=== PATIENT | female | born 1995 | race American Indian/Alaskan Native ===

== ENCOUNTER 2016-08-01 01:45 | Inpatient (IN) | payer OTHER ==
[2016-08-01] MEDS ORDERED: ZOFRAN IV PRN ×2 (03:08→05:21)
[2016-08-01] MEDS ORDERED: ePHEDrine SULFATE IV PRN (03:08)
[2016-08-01] MEDS ORDERED: SUBLIMAZE IV PRN (03:08)
[2016-08-01] MEDS ORDERED: BRETHINE IVP PRN (03:08)
[2016-08-01] MEDS ORDERED: BRETHINE SUB-Q PRN (03:08)
[2016-08-01] MEDS ORDERED: XYLOCAINE 2% INFILTRATI ONE (03:08)
[2016-08-01] MEDS ORDERED: NARCAN 0.4 MG/1 ML IV PRN (03:08)
--- NOTE | 2016-08-01 03:29 | History and Physical Report ---
History of Present Illness Date of examination: 08/01/16 Date of admission: 08/01/16 01:45 Chief complaint: I delivered at home History of present illness: Pt is a 21 year old -[place] female LMP unsure, February 2016 NUBIA 12/08/16 by outside ultrasound at 21w4d who presents after delivery at home of twin via EMS. She reports that she delivered a male in January 2016 , had a menses in February 2016 and received two doses of DepoProvera subsequently (in February 2016 and May 2016). In late June 2015, the pt was not feeling well and reports she went a "clinic downtown" two weeks ago and was told that she was . An ultrasound was done at that time which showed a twin with an NUBIA of 12/08/16. She was given vitamins and told to establish care. The pt had not yet established care because of her [place] schedule [facility] [employer] [facility] [place] and lack of childcare for her son. She was in her usual state of health until the morning of 07/31/16 when she began to feel cramping. She then reports that the cramping got progressively worse over the course of the day. She also experienced vaginal spotting which became heavier over the course of the day and night as well. Early this morning, the pt felt pressure and the need to push and delivered two fetuses while on the toilet at home. Her mother then called EMS and she was transported to this facility. The patient denies headache, blurry vision, chest pain, dyspnea, nausea or vomiting. She has no prior history of labor or . Past History Past Medical History: no pertinent history, other (Eczema ) Past Surgical History: no surgical history Social history: single - Obstetrical History Expected Date of Delivery: 12/08/16 Actual Gestation: 21 Week(s) 4 Day(s) : 3 Para: 1 Hx # Term Pregnancies: 1 Number of Pregnancies: 0 Spontaneous Abortions: 1 (6 wks) Induced : 0 Number of Living Children: 1 Medications and Allergies Allergies Allergy/AdvReac Type Severity Reaction Status Date / Time No Known Allergies Allergy Verified 01/26/16 08:13 Home Medications Medication Instructions Recorded Confirmed Last Taken Type No Known Home Medications [No 01/26/16 01/26/16 Unknown History Reported Home Medications] Active Meds: Active Medications Ephedrine Sulfate (Ephedrine Sulfate) 10 mg IV Q2M PRN PRN Reason: Hypotension Stop: 08/01/16 03:13 Fentanyl (Sublimaze) 100 mcg IV Q2H PRN PRN Reason: Labor Pain Lactated Ringer's (Lactated Ringers) 1,000 mls @ 125 mls/hr IV DIRECT SAMARA Oxytocin/Sodium Chloride (Pitocin/Ns 20 Unit/1000ml Drip) 20 units in 1,000 mls @ 125 mls/hr IV DIRECT SAMARA Lidocaine (Xylocaine 2%) 20 ml INFILTRATI ONCE ONE Stop: 08/01/16 03:09 Naloxone HCl (Narcan 0.4 Mg/1 Ml) 0.1 mg IV Q2MIN PRN PRN Reason: Res Rate </= 8 or 02 SAT < 92% Ondansetron HCl (Zofran) 4 mg IV Q8H PRN PRN Reason: Nausea And Vomiting Terbutaline Sulfate (Brethine) 0.25 mg SUB-Q ONCE PRN PRN Reason: Hyperstimulation/Hypertonicity Stop: 08/01/16 03:09 Terbutaline Sulfate (Brethine) 0.25 mg IVP ONCE PRN PRN Reason: Hyperstimulation/Hypertonicity Stop: 08/01/16 03:09 Review of Systems All systems: negative - Vital Signs Vital signs: Vital Signs Pulse BP 90 116/63 08/01/16 01:59 08/01/16 01:59 Temp Pulse Resp BP Pulse Ox 99 F 82 16 124/58 98 08/01/16 02:33 08/01/16 03:06 08/01/16 03:00 08/01/16 03:00 08/01/16 03:06 - Physical Exam Breasts: Positive: deferred Cardiovascular: Regular rate, Other (systolic flow murmur noted ) Lungs: Positive: Clear to auscultation Abdomen: Positive: soft (gravid ). Negative: tenderness Genitourinary (Female): Positive: normal external genitalia Uterus: Positive: enlarged (gravid, firm ) Extremities: Positive: normal Results All other labs normal. Assessment and Plan A: Twin IUP at 21w4d s/p at home No care P: Admit to labor and delivery. Routine labs. Close observation.
[2016-08-01 03:33] LABS: Urine Drugs of Abuse Note Disclamer
--- NOTE | 2016-08-01 03:39 | Procedure Note ---
OB Delivery Note - Delivery Date of Delivery: 08/01/16 Surgeon: CAROL LORENZO Estimated blood loss: other (unattended; unknown EBL) - Vaginal Intrapartum events: no care, labor-<37 weeks Delivery induction: none Route of delivery: Delivery placenta: spontaneous Episiotomy: none Delivery laceration: none Anesthesia: none Delivery comments: Pt delivered at home unattended and was brought by EMS to the hospital. Pt was examined upon MD arrival and noted have a firm uterus at the umbilicus and minimal lochia rubra. The fetuses appearing grossly normal and appear to be female. There is one amniotic sac and one placenta suggesting a mono-mono twin gestation. - A at 1 minute: 0 at 5 minutes: 0 Infant Gender: Female (wt pending) B at 1 minute: 0 at 5 minutes: 0 Gender: Female (wt pending)
--- NOTE | 2016-08-01 03:45 | Discharge Summary ---
Providers - Providers Date of Admission: 08/01/16 01:45 Date of discharge: 08/01/16 Attending physician: CAROL LORENZO 08/01/16 03:12 Consult to Case Management [CONS] Routine Services Needed at Discharge: Retail Cashier Additional Physician Instructions: delivery of 21 wk twins- nonviable Primary care physician: CAROL LORENZO Hospitalization Reason for admission: labor Delivery: Procedure details: Please see procedure note. Episiotomy: none Laceration: none Other procedures: none complications: none Discharge diagnosis: other (Twin IUP, No care ), delivery [place] baby: twins (two non-viable female neonates) Hospital course: Pt was admitted after delivery at home of twin female neonates at 21 wks. She was examined and observed for about 12 hours when she was discharged by the on= call physician. She will follow up in the office in 4 wks. Condition at discharge: Good Disposition: DISCHARGED TO HOME OR SELFCARE - Discharge Diagnoses (1) No care in current Status: Acute Qualifiers: Trimester: second trimester Qualified Code(s): O09.32 - Supervision of with insufficient care, second trimester (2) delivery Status: Acute (3) Twin gestation in second trimester Status: Acute Qualifiers: Multiple gestation type: monochorionic and monoamniotic Qualified Code(s): O30.012 - Twin , monochorionic/monoamniotic, second trimester Plan - Discharge Medications Prescriptions: HYDROcodone/APAP 5-325 [[place] 5/325] 1 each PO Q6HR PRN #30 tablet PRN Reason: Pain Ibuprofen [Motrin] 800 mg PO Q8HR PRN #60 tablet PRN Reason: Pain - Provider Discharge Summary Activity: routine, no sex for 6 weeks, no heavy lifting 4 weeks, no strenuous exercise Diet: routine Instructions: routine Additional instructions: [] Smoking cessation referral if applicable(refer to patient education folder for contact #) [] Refer to [facility]'s [facility] Booklet Call your doctor immediately for: * Fever > 100.5 * Heavy vaginal bleeding ( >1 pad per hour) * Severe persistent headache * Shortness of breath * Reddened, hot, painful area to leg or breast * Drainage or odor from incision. * Keep incision clean and dry at all times and follow doctor's instructions regarding bathing/showering - Follow up plan Follow up: CAROL LORENZO MD [Primary Care Provider] - 08/29/16 (postpartume exam ) Forms: [facility] Discharge Summary, Work/School Excuse Out Patient, Work/School Release Form
[2016-08-01] MEDS ORDERED: PITOCin/NS 20 UNIT/1000ML DRIP 20 UNITS/1,000 ML BAG IV SCH ×2 (04:00→05:21)
[2016-08-01] MEDS ORDERED: LACTATED RINGERS 1,000 ML IV SCH (04:00)
[2016-08-01 04:29] LABS: Hematocrit 28.4 % (30.3-42.9); Hemoglobin 9.4 gm/dl (10.1-14.3); Mean Corpuscular HGB Conc 33 % (30-34); Mean Corpuscular Hemoglobin 27 pg (28-32); Mean Corpuscular Volume 81 fl (79-97); Platelet Count 246 K/mm3 (140-440); Red Cell Distribution Width 16.9 % (13.2-15.2)
[2016-08-01] MEDS ORDERED: BENADRYL PO PRN (05:21)
[2016-08-01] MEDS ORDERED: TYLENOL PO PRN (05:21)
[2016-08-01] MEDS ORDERED: MILK OF MAGNESIA PO PRN (05:21)
[2016-08-01] MEDS ORDERED: PHENERGAN PR PRN (05:21)
[2016-08-01] MEDS ORDERED: TUCKS PAD TP PRN (05:21)
[2016-08-01] MEDS ORDERED: SODIUM CHLORIDE FLUSH SYRINGE 10 ML IV NR (05:21)
[2016-08-01] MEDS ORDERED: NORCO 5/325 PO PRN (05:21)
[2016-08-01] MEDS ORDERED: PHENERGAN PO PRN (05:21)
[2016-08-01] MEDS ORDERED: DERMOPLAST TP PRN (05:21)
[2016-08-01] MEDS ORDERED: LANSINOH TP PRN (05:21)
[2016-08-01] MEDS ORDERED: DULCOLAX PR PRN (05:21)
[2016-08-01] MEDS: MOTRIN PO SCH ×2 (06:04→11:38)
[2016-08-01 07:07] LABS: HIV-1 Antigen p24 Non React (Non React); HIVR-1/2 Ab Non React (Non React)
--- NOTE | 2016-08-01 08:45 | Progress Note ---
Assessment and Plan - Patient Problems (1) delivery Current Visit: Yes Status: Acute Plan to address problem: discharge home today supportive care (2) Twin gestation in second trimester Current Visit: Yes Status: Acute Qualifiers: Multiple gestation type: M Subjective - Subjective Date of service: 08/01/16 Interval history: Patient denies any significant complaints. Inquired about cremation of the twins. Family in the room with patient. Patient reports: appetite normal, voiding normally, pain well controlled Agness: Objective - Vital Signs Latest vital signs: Vital Signs Temp Pulse Pulse Resp BP BP Pulse Ox 08/01/16 06:04 18 08/01/16 05:14 98.4 F 82 20 111/65 08/01/16 04:59 74 129/66 08/01/16 04:15 77 114/57 08/01/16 04:00 82 116/77 08/01/16 03:45 98.3 F 71 16 122/74 08/01/16 03:33 75 118/71 08/01/16 03:30 16 08/01/16 03:15 16 08/01/16 03:06 82 98 08/01/16 03:01 88 99 08/01/16 03:00 80 16 124/58 08/01/16 02:56 105 H 99 08/01/16 02:51 89 98 08/01/16 02:46 101 H 100 08/01/16 02:45 107 H 122/85 08/01/16 02:33 99 F 08/01/16 02:03 99.5 F 16 08/01/16 01:59 90 116/63 Intake and Output 07/31/16 08/01/16 08/01/16 22:59 06:59 14:59 Other: Weight 53.524 kg - Exam Uterus: Present: normal, firm - Labs Labs: Abnormal lab results 08/01/16 Range/Units 02:10 WBC 17.0 H (4.5-11.0) K/mm3 RBC 3.50 L (3.65-5.03) M/mm3 Hgb 9.4 L (10.1-14.3) gm/dl Hct 28.4 L (30.3-42.9) % MCH 27 L (28-32) pg RDW 16.9 H (13.2-15.2) %
[2016-08-01 13:26] VITALS: BP 115/78
[2016-08-02] MEDS ORDERED: M-M-R II VACCINE SUB-Q ONE (06:00)
[2016-08-02] MEDS ORDERED: BOOSTRIX IM ONE (06:05)
== END 2016-08-01 12:50 | disposition home or self-care (01) | DRG 776 ==
LOC: APU 01:45 → LD 01:50 → OB 05:30
PROVIDERS: ADMIT Obstetrics & Gynecology; ATTEND Obstetrics & Gynecology
DX: Z39.0 Encounter for care and examination of mother immediately after delivery (principal)
CPT/HCPCS: 36415; 80307; 85027; 86592; 86706; 86762; 86803; 86850; 86900; 86901; 87806; 88305